=== PATIENT | female | born 2000 | race Caucasian/White ===

== ENCOUNTER 2024-01-16 14:01 | Emergency (ER) | payer BC ==
[2024-01-16] MEDS ORDERED: Sodium Chloride 0.9% 10 ML Syringe FLUSH PRN (14:55)
[2024-01-16] MEDS: Iopamidol 755 Mg/ML 100 ML Bottle IVPUSH ONE (15:50)
== END 2024-01-16 17:24 | disposition home or self-care (01) ==
LOC: LL.ED 14:01
DX: I67.1 Cerebral aneurysm, nonruptured (principal); R79.89 Other specified abnormal findings of blood chemistry
CPT/HCPCS: 70496; 99284; Q9967